=== PATIENT | male | born 1945 | race Caucasian/White ===

== ENCOUNTER → 2019-05-01 | Outpatient (CLI) | payer OTHER ==
--- NOTE | 2019-05-02 09:27 | CT ---
EXAMINATION TYPE: CT foot LT wo con DATE OF EXAM: 05/01/2019 COMPARISON: None HISTORY: Lump to left foot, plantar surface CT DLP: 253 mGycm Automated exposure control for dose reduction was used. FINDINGS: There is a small fluid collection seen beneath the distal and medial first metatarsal measuring 2.1 x 1.6 x 0.7 cm in AP by transverse by craniocaudad dimension and best seen on axial image 50 and sagit jerald image 23. The fluid collection measures 15-20 Hounsfield units. There is a peripheral hyperattenu ating area surrounding the fluid. No evidence of osteodestructive area adjacent to the fluid collecti on, but there are moderate degenerative changes at the first metatarsal-phalangeal joint. There is a small bone island seen in the distal first proximal phalanx. No acute fracture or dislocation. Degenerative changes are seen in the midfoot and hindfoot. Tendon and ligaments appear grossly intact. Small plantar aspect calcaneal spur. IMPRESSION: FINDINGS FAVORED TO REPRESENT FIRST METATARSAL ADVENTITIOUS BURSITIS, BUT ABSCESS WOULD ALSO BE INCLU DED WITHIN THE DIFFERENTIAL. NO CT EVIDENCE OF OSTEOMYELITIS, BUT IF CLINICAL CONCERN REMAINS, MRI OF THE FOOT WITH CONTRAST MAY BE PERFORMED.
== END | disposition home or self-care (01) ==
LOC: RADCTMAIN 15:34
PROVIDERS: ATTEND Family Medicine
DX: S91.302D Unspecified open wound, left foot, subsequent encounter (principal)

== ENCOUNTER → 2023-02-01 | Outpatient (CLI) | payer OTHER ==
[2023-02-01 15:10] LABS: Basophils # (A) 0.07 X 10*3/uL (0.00-0.10); Basophils % (A) 1.4 %; Eosinophils # (A) 0.29 X 10*3/uL (0.04-0.35); Eosinophils % (A) 5.8 %; HCT 45.4 % (39.6-50.0); HGB 15.8 g/dL (13.0-17.0); Immature Grans, Automated 0.4 %; Lymphocytes # (A) 1.64 X 10*3/uL (0.90-5.00); Lymphocytes % (A) 32.9 %; MCH 32.5 pg (27.0-32.0); MCHC 34.8 g/dL (32.0-37.0); MCV 93.4 fL (80.0-97.0); Mean Platelet Volume 10.5 fL (9.5-12.2); NRBC Per 100 WBC 0 /100 WBCS (0.0-0.0); Neutrophils # (A) 2.57 X 10*3/uL (1.80-7.70); Neutrophils % (A) 51.5 %; Platelet Count 173 X 10*3/uL (140-440); RBC 4.86 X 10*6/uL (4.40-5.60); RDW 12.4 % (11.5-14.5); WBC 4.99 X 10*3/uL (4.50-10.00)
[2023-02-01 15:42] LABS: Anion Gap 11.1 mmol/L (10.00-18.00); Carbon Dioxide 24.9 mmol/L (20.0-27.5); Potassium 4.2 mmol/L (3.5-5.5)
== END | disposition home or self-care (01) ==
LOC: LABPAT 11:11
PROVIDERS: ATTEND Orthopaedic Surgery
DX: Z01.812 Encounter for preprocedural laboratory examination (principal); M23.91 Unspecified internal derangement of right knee
CPT/HCPCS: 36415; 80051; 85025

== ENCOUNTER 2023-02-23 09:25 | Day surgery (SDC) | payer OTHER ==
[2023-02-20 14:29] VITALS: BMI 34.0
--- NOTE | 2023-02-23 07:44 | HP ---
HISTORY AND PHYSICAL DATE OF SURGERY: Surgery is scheduled for 02/23/2023. HISTORY OF PRESENT ILLNESS: Jonny Waller is a 77-year-old gentleman seen with progressive right knee pain. We discussed options for treatment. He elected to proceed with right knee arthroscopy. Consent regarding the procedure was obtained. PAST MEDICAL HISTORY: Hypertension, gastroesophageal reflux disease, hyperlipidemia, osteoarthritis. PAST SURGICAL HISTORY: Cholecystectomy, hand surgery, tonsillectomy. DAILY MEDICATIONS: Vitamins, Celebrex, glucosamine, metformin, omeprazole, rosuvastatin. ALLERGIES: Benadryl, Ultram. SOCIAL HISTORY: Denies tobacco use. PHYSICAL EVALUATION OF THE RIGHT KNEE: Range of motion is 0 to 125 degrees. Mild effusion. Tenderness medial joint line. Positive medial Lisa's. Ligament stable. Hip rotation without pain. Distal neurovascular exam is intact. RADIOGRAPHS: Radiographs of the right knee revealed moderate osteoarthritic changes. IMPRESSION: 1. Internal derangement of right knee with medial meniscal tear. 2. Hypertension. 3. Hyperlipidemia. 4. [id number]-[id number] diabetes. PLAN: Right knee arthroscopy with partial medial meniscectomy and debridement. MMODL / IJN: [id number] /
[~2023-02-23 09:25] MED LIST: DEXAMETHASONE SOD PHOSPHATE 4 MG/ML 1 ML VIAL IV ONE; HYDROmorphone 0.5 MG/0.5 ML SYRINGE IVP PRN; LACTATED RINGERS 1,000 ML IV SCH; LIDOCAINE 1% (10MG/ML) FOR IV START INTRADERMA PRN; ONDANSETRON 4 MG/2 ML VIAL IVP ONE; droPERidol 5 MG/2 ML VIAL IVP ONE
[2023-02-23 09:56] VITALS: TEMP 97
[2023-02-23 10:28] LABS: Glucose,Whole Blood 150 mg/dL (70-110)
[2023-02-23] MEDS ORDERED: HYDROmorphone (PF) 1 MG/ML ONE (10:54)
[2023-02-23] MEDS ORDERED: SUCCINYLCHOLINE CHLORIDE 200 MG/10 ML VIAL IV ONE (10:54)
[2023-02-23] MEDS ORDERED: MIDAZOLAM 2 MG/2 ML VIAL ONE (10:54)
[2023-02-23] MEDS ORDERED: fentaNYL (PF) 50 MCG/ML 2 ML AMP ONE (10:54)
[2023-02-23] MEDS ORDERED: PROPOFOL 10 MG/ML 20 ML VIAL IV ONE (10:54)
[2023-02-23] MEDS ORDERED: LIDOCAINE 2% INJ 20 MG/ML (2 ML VIAL) ONE (10:54)
[2023-02-23] MEDS ORDERED: BUPIVACAINE (PF) 0.25% 30 ML VIAL SQ ONE ×2 (10:55→11:37)
--- NOTE | 2023-02-23 11:49 | P.OP ---
Date of Procedure: 02/23/23 Preoperative Diagnosis: Internal derangement right knee Postoperative Diagnosis: 1. Tear medial and lateral meniscus right knee 2. Grade 4 chondromalacia medial femoral condyle right knee 3. Reactive synovitis medial, lateral and suprapatellar compartments right knee Procedure(s) Performed: 1. Arthroscopic partial medial and lateral meniscectomy right knee 2. Arthroscopic microfracture medial femoral condyle right knee 3. Arthroscopic partial synovectomy medial, lateral and suprapatellar compartments right knee 4. Arthroscopic chondroplasty medial femoral condyle right knee Anesthesia: CHELEA, local Surgeon: Fran Coleman Estimated Blood Loss (ml): 11 Pathology: none sent Condition: stable Disposition: PACU Indications for Procedure: 77-year-old gentleman seen with progressive right knee pain. After treatment options were discussed, he elected to proceed with arthroscopy. Operative Findings: See description of procedure Description of Procedure: Patient was taken to the operative suite. Patient underwent a general anesthetic by the department of anesthesia. Patient was given preoperative antibiotics. The right lower extremity was placed in a well-padded arthroscopic leg johnston. The right leg was prepped and draped in the normal sterile orthopedic fashion. A lateral parapatellar and suprapatellar incision was made. Trochars were inserted. Arthroscopy was initiated. Suprapatellar pouch rev ealed diffuse thick reactive synovitis. The patellofemoral joint appeared to articulate congruently. There was grade 2/3 chondromalacia of the patellofemoral joint without any excess cannot osteochondral tears present. The scope was guided into the medial gutter. No loose body or plica were identified. The scope was then guided into the medial compartment. A medial parapatellar incision was made. Trocar inserted followed by probe. There was a complex tear involving the posterior horn medial meniscus. There were grade 3/4 chondromalacia changes of the medial femoral condyle with some osteochondral flap tears present. There was some thick reactive synovitis anteriorly. I performed a partial medial meniscectomy getting down to stable meniscal tissue. I performed a chondroplasty of the medial femoral condyle getting down to stable osteochondral tissue. I performed a partial synovectomy decompressing reactive synovitis. I did note area of grade 4 chondromalacia/exposed bone on the medial femoral condyle measuring about a centimeter in diameter. I introduced a microfracture awl and I performed a microfracture to that area penetrating the bone with resultant bleeding at the microfracture site. The residual meniscus was probed and was found to be stable. The residual osteochondral surface was stable. There was good decompression of the synovitis. Scope and probe were then guided into the intercondylar notch. Cruciates were identified, probed and found to be stable. The scope and probe were then guided into lateral compartment. Was a radial tear posterior horn lateral meniscus. There were grade 1 chondromalacia changes lateral compartment. There was some thick reactive synovitis anteriorly. I performed a partial lateral meniscectomy getting down to stable meniscal tissue. I performed a partial synovectomy decompressing the reactive synovitis. The residual meniscus was stable. There was good decompression of the synovitis. The scope was in guided back into the suprapatellar compartment. I introduced a motorized shaver into the suprapatellar compartment. I debrided some piecemeal fragments of meniscus I encountered. I performed a partial synovectomy. Shaver was now removed. There was good decompression of the synovitis. I took one more look on the entire knee, no residual debris. Instruments were now removed from the joint. The shiva nt was infiltrated with .25% Marcaine. Steri-Strips were applied to the portal sites. Sterile dressings were applied. The patient was placed into a TITI hose. No tourniquet was utilized. The patient was awakened, transferred to a bed and taken to recovery stable satisfactory condition.
[2023-02-23 12:04] VITALS: RESP 16
[2023-02-23] MEDS ORDERED: KETOROLAC 15 MG/ML 1 ML VIAL IVP ONE (12:25)
[2023-02-23] MEDS ORDERED: HYDROcodone/APAP 5-325MG 1 EACH TAB ONE (13:18)
[2023-02-23 13:28] VITALS: BP 168/94; PULSE 72
== END 2023-02-23 14:51 | disposition home or self-care (01) ==
LOC: OR 09:25
PROVIDERS: ATTEND Orthopaedic Surgery
DX: M23.91 Unspecified internal derangement of right knee (principal); S83.231A Complex tear of medial meniscus, current injury, right knee, initial encounter; S83.281A Other tear of lateral meniscus, current injury, right knee, initial encounter; M94.261 Chondromalacia, right knee; M17.11 Unilateral primary osteoarthritis, right knee; M65.861 Other synovitis and tenosynovitis, right lower leg; I11.0 Hypertensive heart disease with heart failure; I50.9 Heart failure, unspecified; I25.2 Old myocardial infarction; Z95.0 Presence of cardiac pacemaker; Z99.89 Dependence on other enabling machines and devices; E78.5 Hyperlipidemia, unspecified; E11.9 Type 2 diabetes mellitus without complications; K21.9 Gastro-esophageal reflux disease without esophagitis; Z79.84 Long term (current) use of oral hypoglycemic drugs; Z79.1 Long term (current) use of non-steroidal anti-inflammatories (NSAID); Z79.899 Other long term (current) drug therapy; Z88.8 Allergy status to other drugs, medicaments and biological substances
CPT/HCPCS: 97161; 29879; 29880; J2250; J0330; J1100; J0690; J2405; J3010; J1170 ×2; J1885; J2704; J2001

== ENCOUNTER → 2023-03-13 | Outpatient (CLI) | payer OTHER | END | disposition home or self-care (01) | LOC: LABWHC1 12:07 | PROVIDERS: ATTEND Urology | DX: R97.20 Elevated prostate specific antigen [PSA] (principal) | CPT/HCPCS: 36415; 84153 ==

== ENCOUNTER → 2023-08-21 | Outpatient (CLI) | payer OTHER | END | disposition home or self-care (01) | LOC: LABWHC1 13:01 | PROVIDERS: ATTEND Urology | DX: R97.20 Elevated prostate specific antigen [PSA] (principal) | CPT/HCPCS: 36415; 84153 ==

== ENCOUNTER → 2023-12-07 | Outpatient (CLI) | payer OTHER ==
--- NOTE | 2023-12-07 18:23 | XR ---
EXAMINATION TYPE: XR knee complete LT DATE OF EXAM: 12/07/2023 4:12 PM CLINICAL INDICATION:Male, 78 years old with history of M25.562 LEFT KNEE PAIN; COMPARISON: None. TECHNIQUE: XR knee complete LT; examined in Frontal, lateral and oblique projections. FINDINGS: No evidence of any acute osseous pathology, soft tissue swelling, or joint effusion is no fransisca. Tricompartmental osteophyte formation involving the femoral condyles, tibial plateau and patella . Mild joint space narrowing. Enthesophyte formation of the quadriceps insertion on the patella. IMPRESSION: 1. No acute osseous pathology. 2. Mild tricompartmental osteoarthritic changes.
== END | disposition home or self-care (01) ==
LOC: RADXRMAIN 15:41
PROVIDERS: ATTEND Social Worker Clinical
DX: M17.12 Unilateral primary osteoarthritis, left knee (principal)

== ENCOUNTER → 2024-02-26 | Outpatient (CLI) | payer OTHER | END | disposition home or self-care (01) | LOC: LABWHC1 11:51 | PROVIDERS: ATTEND Urology | DX: R97.20 Elevated prostate specific antigen [PSA] (principal) | CPT/HCPCS: 36415; 84153 ==

== ENCOUNTER → 2024-03-22 | Outpatient (CLI) | payer OTHER ==
--- NOTE | 2024-03-22 16:21 | US ---
EXAMINATION TYPE: US kidneys/renal and bladder DATE OF EXAM: 03/22/2024 COMPARISON: NONE CLINICAL INDICATION: Male, 78 years old with history of R31.0 GROSS HEMATURIA; hematuria. Pt states h aggie has had 2 episodes of hematuria, one time in October and one time in February. EXAM MEASUREMENTS: Right Kidney: 12.5 x 6.0 x 6.3 cm Left Kidney: 12.3 x 5.6 x 5.6 cm Right Kidney: No hydronephrosis or masses seen Left Kidney: complex avascular cystic area seen at inferior pole measuring 2.1 x 2.9 x 2.6cm. Bladder: wnl Bilateral Jets seen: No There is no evidence for hydronephrosis at this point in time. No nephrolithiasis is seen. Thin-wall ed cyst with thin septation identified within the inferior pole of the left kidney. No mural nodulari ty identified. No internal color flow. No solid masses are identified. The urinary bladder is anecho ic. Bilateral ureteral jets are not seen. Prostate gland is enlarged measuring up to 6.4 cm in trans verse dimension. IMPRESSION: 1. Minimally complex left renal cystic lesion with thin septation. Consider further evaluation with C T abdomen (renal mass protocol) in the setting of gross hematuria. 2. No hydronephrosis or nephrolithiasis. 3. Prostatomegaly.
== END | disposition home or self-care (01) ==
LOC: RADUSWWP 12:51
PROVIDERS: ATTEND Urology
DX: R31.0 Gross hematuria (principal); N40.0 Benign prostatic hyperplasia without lower urinary tract symptoms
CPT/HCPCS: 76770

== ENCOUNTER → 2024-06-19 | Outpatient (CLI) | payer OTHER ==
--- NOTE | 2024-06-19 12:42 | XR ---
EXAMINATION TYPE: XR shoulder complete RT DATE OF EXAM: 06/19/2024 CLINICAL HISTORY: pain TECHNIQUE: Three views of the right shoulder are obtained. COMPARISON: None FINDINGS: There is no acute fracture/dislocation evident. The acromioclavicular and glenohumeral ramila int spaces appear moderately narrowed. The visualized ribs are intact and unremarkable. IMPRESSION: 1. There is no acute fracture or dislocation. ICD 10 NO FRACTURE, INITIAL EVALUATION [facility], , 06/19/2024 12:40 PM
== END | disposition home or self-care (01) ==
LOC: RADXRMAIN 11:45
PROVIDERS: ATTEND Social Worker Clinical
DX: M25.511 Pain in right shoulder (principal)